=== PATIENT | male | born 1965 | race Caucasian/White ===

== ENCOUNTER 2021-04-25 09:44 | Outpatient (CLI) | payer OTHER, SELFPAY ==
--- NOTE | ~2021-04-25 | US_ITS ---
EXAMINATION: US abdomen limited EXAM DATE: 04/25/2021 10:17 INDICATION: R17 - Unspecified jaundice. TECHNIQUE: Multiple grayscale and Doppler images of the abdomen right upper quadrant were obtained (b y a technologist who performed the scan) and subsequently reviewed. There is no prior study for melissa prado. FINDINGS: The pancreatic head and body are normal in appearance. The pancreatic tail is not visualized. The l iver has normal echogenicity and contour. There are no focal liver lesions identified. There is no evidence of intrahepatic biliary duct dilation. Portal venous flow was seen in the hepatopedal, nor mal direction and has normal Doppler waveform. No right-sided hydronephrosis. Common bile duct measures 4 mm, which is normal. The gallbladder wall is normal in thickness, with ex pected amount of distention. No sonographic evidence of pericholecystic fluid. There is no cholelit hiases. Technologist performing exam reports patient did not demonstrate sonographic Hernandez's sign. Please note that this sign is less reliable in patients who have received pain medication. IMPRESSION: Unremarkable abdominal ultrasound exam. Reviewed, dictated and finalized at location A.
== END 2021-04-25 09:45 | disposition home or self-care (01) ==
LOC: ANHIMG 09:51
PROVIDERS: PCP Internal Medicine; Visit Provider Nurse Practitioner
DX: R17 Unspecified jaundice (principal)
CPT/HCPCS: 76705

== ENCOUNTER 2023-01-25 02:44 | Day surgery (SDC) | payer OTHER, SELFPAY ==
[2023-01-14 13:26] VITALS: BMI 25.9
--- NOTE | 2023-01-24 11:34 | PM.HPGS ---
History of Present Illness History of Present Illness Consent: Risks, benefits, and alternatives have been discussed and questions answered. Patient agrees to proceed with procedure. Chief complaint: family hx colon ca, hx colon polyps Narrative: Gregorio nKowles is a 57 year old male Referred for colon cancer screening. He has a family history of colon cancer and has had polyps removed himself. His last colonoscopy was 4 years ago. His grandmother and his grandmother sister both had colon cancer in their 40s. Review of Systems Review of Systems: All systems reviewed & are unremarkable except as noted in HPI and below PMFSH Past Medical History Medical History Body mass index (bmi) 25.0-25.9, adult Insomnia Tendonitis of elbow, left Surgical History Surgical History History of hernia repair History of tonsillectomy Family History Family History Father Allergies Father Hypertension Mother Hypertension Father Hypertension Family history of allergic disorder Mother Hypertension Social History Social History Smoking status: Never smoker Second hand tobacco smoke exposure: Yes Alcohol intake: current Drinks per week: 2 Alcohol use details: occasional Substance use: never Substance use type: does not use Lack of Transportation: No Lack of Food: Never True Current Housing: I Have Housing Concerned About Future Housing: No Difficulty Paying Gas/Electric Bills: No Difficulty Paying for Meds: No Currently Unemployed: No Education: Bachelor's Degree Difficulty w/ Childcare or Family Care: No Living arrangements: with family Spiritual care concerns: No Meds Home Medications and Allergies Home Medications Medication Instructions Recorded Confirmed Type alprazolam 1 mg tablet 1 mg PO DAILY PRN sleep #30 tabs 11/07/22 01/14/23 Rx sodium,potassium,mag sulfates 17.5 See Rx Instructions PO .COMPLEX 01/01/23 Rx gram-3.13 gram-1.6 gram oral soln #354 mL (Suprep Bowel Prep Kit) Adult Low Dose Aspirin 81 mg PO DAILY 01/25/23 01/25/23 History Allergies Allergy/AdvReac Type Severity Reaction Status Date / Time atorvastatin AdvReac Intermediate myalgias Verified 01/25/23 08:57 Exam Const: General: alert Orientation/consciousness: patient oriented x3 Resp: Auscultation: clear to auscultation bilaterally Cardio: Rhythm: regular rhythm GI: GI Palp: Yes Soft to palpation and No Tenderness to palpation present (GI) Neuro: General: patient oriented x3 Assessment and Plan Assessment and plan (1) Family history of colon cancer: Code(s): Z80.0 - Family history of malignant neoplasm of digestive organs Status: Acute Assessment and Plan: Colonoscopy with possible biopsy or polypectomy or cautery or injection of substances.
[2023-01-25 08:58] VITALS: BP 132/98; PULSE 65; RESP 16; TEMP 36.1; O2SAT 100
[2023-01-25] MEDS: LACTATED RINGERS 1,000 ML 150 ML IV CONT (09:10)
--- NOTE | 2023-01-25 09:46 | P.PNAN_ITS ---
Anes - Initial Pre Proc Eval Procedure: Operation Date: 01/25/23 10:00 Proposed Procedures p Colonoscopy - Iker Bateman MD Date/Time: 01/25/23 09:46 Surgeon: Iker Bateman MD Pre Op Diagnosis: family hx colon ca, hx colon polyps Patient Data Age: 57 Gender: M Height: 1.78 m Weight: 82 kg Last Vital Signs Temp 97 F L 01/25/23 08:58 Pulse 65 01/25/23 08:58 Resp 16 01/25/23 08:58 BP 132/98 H 01/25/23 08:58 Pulse Ox 100 01/25/23 08:58 O2 Del Method Room Air 01/25/23 08:58 Allergies Allergy/AdvReac Type Severity Reaction Status Date / Time atorvastatin AdvReac Intermediate myalgias Verified 01/25/23 08:57 Home Medications Medication Instructions Recorded Confirmed Type alprazolam 1 mg tablet 1 mg PO DAILY PRN sleep #30 tabs 11/07/22 01/14/23 Rx sodium,potassium,mag sulfates 17.5 See Rx Instructions PO .COMPLEX 01/01/23 Rx gram-3.13 gram-1.6 gram oral soln #354 mL (Suprep Bowel Prep Kit) Adult Low Dose Aspirin 81 mg PO DAILY 01/25/23 01/25/23 History Patient hx anesthesia problems: none Family hx anesthesia problems: none Results Review: All pre-operative results and documents have been reviewed as part of the pre- operative evaluation. [facility] Past Medical History Medical History Body mass index (bmi) 25.0-25.9, adult Insomnia Tendonitis of elbow, left Surgical History Surgical History History of hernia repair History of tonsillectomy Family History Family History Father Allergies Father Hypertension Mother Hypertension Father Hypertension Family history of allergic disorder Mother Hypertension Social History Social History Smoking status: Never smoker Second hand tobacco smoke exposure: Yes Alcohol intake: current Drinks per week: 2 Alcohol use details: occasional Substance use: never Substance use type: does not use Lack of Transportation: No Lack of Food: Never True Current Housing: I Have Housing Concerned About Future Housing: No Difficulty Paying Gas/Electric Bills: No Difficulty Paying for Meds: No Currently Unemployed: No Education: Bachelor's Degree Difficulty w/ Childcare or Family Care: No Living arrangements: with family Spiritual care concerns: No Anes - Eval Final PreProcedure Day of Procedure 01/25/23 09:46 Patient weight: normal Heart: regular rate and rhythm Lungs: clear to auscultation Airway: Mallampati scale class II Neurological: alert and oriented Last oral intake: >/= 8 hours ASA classification: II Emergent: no Anesthetic plan: proceed Anesthesia type and monitoring: general GIVS and standard monitoring Results Review: All pre-operative results and documents have been reviewed as part of the pre- operative evaluation. Informed Consent: The patient's anesthetic plan and its attendant risks and benefits were discussed with the patient/family/POA. Questions were solicited and answers provided to the satisfaction of the patient/family/POA.
[2023-01-25] MEDS: SIMETHICONE ORAL SUSPENSION 20 MG/0.3 ML 30 ML BOTTLE 0.6 ML IRRIGATION (10:05)
[2023-01-25 10:14] VITALS: BP 111/62; PULSE 68; RESP 18; O2SAT 100
[2023-01-25 10:24] VITALS: BP 110/67; PULSE 68; RESP 18; O2SAT 100
[2023-01-25 10:34] VITALS: BP 120/80; PULSE 66; RESP 19; O2SAT 100
== END 2023-01-25 10:47 | disposition home or self-care (01) ==
PROVIDERS: PCP Family Medicine; Visit Provider Internal Medicine Gastroenterology
PROC: 0DJD8ZZ Inspection of Lower Intestinal Tract, Via Natural or Artificial Opening Endoscopic (ICD-10-PCS; CPT 45378; principal; 2023-01-25 10:00)
DX: Z12.11 Encounter for screening for malignant neoplasm of colon (principal); K62.1 Rectal polyp; Z80.0 Family history of malignant neoplasm of digestive organs
CPT/HCPCS: 45380; 88305; J2704; J7120

== ENCOUNTER 2025-01-21 09:38 | Outpatient (CLI) | payer OTHER, SELFPAY ==
--- NOTE | 2025-01-21 09:44 | EST_ITS ---
Patient Info Name: Gregorio Knowles Age: 59 years : 1965 Gender: Male Ht: 71 in Wt: 200 lbs BSA: 2.15 m2 Exam Date: 01/21/2025 9:44 AM Patient Status: O Admit Date: 01/21/2025 Exam Type: CA stress test treadmill An exercise stress test was performed. Staff Attending Provider: Preet Alston Exercise Technologist: Kathleen Berry Exercise Physician: Wilman Dc DO Summary 1. 1. Negative Chai exercise stress test for ischemic ST changes by ECG criteria. 2. 2. Good functional capacity, achieving 10 METs of workload. 3. 3. Baseline hypertension with hypertensive response to exercise. 4. 4. Appropriate HR response to exercise. 5. 5. Appropriate HR recovery at 1 minute post exercise. 6. 6. No imaging with stress testing. 7. 7. Patient informed of the above results. Protocol: Chai Stress ECG Details Stage: REST Duration (min): 1 min : 35 sec Speed (mph): 0.0 Grade (%): 0 HR (bpm): 75 SBP (mmHg): 151 DBP (mmHg): 96 METS: --- Stage: REST Duration (min): 11 min : 18 sec Speed (mph): 0.0 Grade (%): 0 HR (bpm): 79 SBP (mmHg): 151 DBP (mmHg): 96 METS: --- Stage: STAGE 1 Duration (min): 1 min : 0 sec Speed (mph): 1.7 Grade (%): 10 HR (bpm): 101 SBP (mmHg): 151 DBP (mmHg): 96 METS: --- Stage: STAGE 1 Duration (min): 2 min : 0 sec Speed (mph): 1.7 Grade (%): 10 HR (bpm): 106 SBP (mmHg): 151 DBP (mmHg): 96 METS: --- Stage: STAGE 1 Duration (min): 3 min : 0 sec Speed (mph): 1.7 Grade (%): 10 HR (bpm): 112 SBP (mmHg): 177 DBP (mmHg): 88 METS: --- Stage: STAGE 2 Duration (min): 1 min : 0 sec Speed (mph): 2.5 Grade (%): 12 HR (bpm): 118 SBP (mmHg): 177 DBP (mmHg): 88 METS: --- Stage: STAGE 2 Duration (min): 2 min : 0 sec Speed (mph): 2.5 Grade (%): 12 HR (bpm): 123 SBP (mmHg): 189 DBP (mmHg): 89 METS: --- Stage: STAGE 2 Duration (min): 3 min : 0 sec Speed (mph): 2.5 Grade (%): 12 HR (bpm): 125 SBP (mmHg): 189 DBP (mmHg): 89 METS: --- Stage: STAGE 3 Duration (min): 1 min : 0 sec Speed (mph): 3.4 Grade (%): 14 HR (bpm): 139 SBP (mmHg): 198 DBP (mmHg): 93 METS: --- Stage: STAGE 3 Duration (min): 2 min : 0 sec Speed (mph): 3.4 Grade (%): 14 HR (bpm): 158 SBP (mmHg): 198 DBP (mmHg): 93 METS: --- Stage: STAGE 3 Duration (min): 2 min : 33 sec Speed (mph): 3.4 Grade (%): 14 HR (bpm): 163 SBP (mmHg): 198 DBP (mmHg): 93 METS: --- Stage: RECOVERY Duration (min): 0 min : 26 sec Speed (mph): 0.0 Grade (%): 0 HR (bpm): 159 SBP (mmHg): 213 DBP (mmHg): 63 METS: --- Stage: RECOVERY Duration (min): 1 min : 26 sec Speed (mph): 0.0 Grade (%): 0 HR (bpm): 123 SBP (mmHg): 213 DBP (mmHg): 63 METS: --- Stage: RECOVERY Duration (min): 2 min : 26 sec Speed (mph): 0.0 Grade (%): 0 HR (bpm): 111 SBP (mmHg): 246 DBP (mmHg): 92 METS: --- Stage: RECOVERY Duration (min): 3 min : 26 sec Speed (mph): 0.0 Grade (%): 0 HR (bpm): 97 SBP (mmHg): 223 DBP (mmHg): 90 METS: --- Stage: RECOVERY Duration (min): 4 min : 26 sec Speed (mph): 0.0 Grade (%): 0 HR (bpm): 97 SBP (mmHg): 223 DBP (mmHg): 90 METS: --- Stage: RECOVERY Duration (min): 5 min : 26 sec Speed (mph): 0.0 Grade (%): 0 HR (bpm): 93 SBP (mmHg): 172 DBP (mmHg): 85 METS: --- Stage: RECOVERY Duration (min): 6 min : 26 sec Speed (mph): 0.0 Grade (%): 0 HR (bpm): 96 SBP (mmHg): 172 DBP (mmHg): 85 METS: --- Stage: RECOVERY Duration (min): 6 min : 52 sec Speed (mph): 0.0 Grade (%): 0 HR (bpm): 96 SBP (mmHg): 156 DBP (mmHg): 86 METS: --- Rest HR: 79 bpm Peak HR: 166 bpm Rest Sys BP: 151 mmHg Peak Sys BP: 246 mmHg Max Pred HR: 163 bpm % Max Pred HR: 102 % Target HR: 139 bpm Max RPP: 40,836 bpm*mmHg Valdez Score: 2 BP Response: Patient exhibited a hypertensive response with stress Termination Reason: Reached target heart rate or workload Cardiac Symptoms: Shortness of breath Max ST Seg Deviation: -1.40 mm Total Time: 8 min : 33 sec Rest Real BP: 96 mmHg Peak Real BP: 92 mmHg Angina Score: None Total METS: 10.3 Resting ECG Sinus rhythm. Stress ECG No ST changes. Arrhythmias None. Report Signatures
--- OUTSIDE RECORDS SUMMARY | 2025-01-21 09:47 | XMS_ITS | Encounter Summary ---
Author Organization [facility] Address [address] [facility] [place] [address] Care Team Providers Care Train Controller Name Role Phone Jose Fleming Primary Care Provider [phone] Encounter Details Date Type Department Care Team (Late st Contact Info) Description 02/11/2020 Lab Requisition [facility] Lab [address] [facility], [place] [phone] Ellie Hooker DO [address] [facility] 3 [place] [address] Social History Tobacco Use Types Packs/Day Years Used Date Smoking Tobacco: Never Smokeless Tobacco: Never Sex and Gender Information Value Date Recorded Sex Assigned at Not on file 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 DermPath Lab Received: 02/11/2020 08:21 AM Pathologist: Akil Gustafson MD Specimen: Skin, right lateral LE 0 5:05 PM CDT DERMATOPATHOLOGY LABORATORY Final Diagnosis Specimen A. SKIN, right lateral LE: SUPERFICIAL PERIVASCULAR LYMPHOCYTIC INFILTRATE (L98.9) DERMAL HEMORRHAGE (I99.8) (see microscopic description) 0 5:05 PM T DERMATOPATHOLOGY LABORATORY at 1705 CDT Clinical History R/O hem vs ecchymoses vs NMSC; pink papule. 0 5:05 PM CDT DERMATOPATHOLOGY LABORATORY Gross Description Specimen A: Received is one formalin filled container labeled with the patient's name and designated right lateral LE. The specimen consists of a shave measuring [id number]. Jar 0. 0 5:05 PM T DERMATOPATHOLOGY LABORATORY Microscopic Description Specimen A. SKIN, right lateral LE: In the dermis, there is a perivascular, mainly lymphohistiocytic inflammatory infiltrate. Sections also show dermal hemorrhage with scattered hemosiderophages. There is no evidence of epithelial dysplasia or malignancy in multiple deeper sections examined. 0 5:05 PM T DERMATOPATHOLOGY LABORATORY Disclaimer An external and internal positive and negative controls are appropriate for the histochemical, immunohistochemical and immunofluorescence stain(s) in this case (if any), except where stated explicitly. The performance characteristics of the stain(s) cited in this report were developed and its performance characteristic determined by the Dermatopathology Laboratory at [facility], directed by Dr. Vee Gustafson. These tests need not be, and therefore are not, approved by the [place] Food and Drug Administration. The tests are used for clinical purposes. Billing Codes Specimen Charges Stain Charges 40704 1 0 5:05 PM CDT DERMATOPATHOLOGY LABORATORY Embedded Images 0 5:05 PM CDT DERMATOPATHOLOGY LABORATORY Pathology/Cytolog y TISSUE SPECIMEN FROM SKIN / Unknown 02/10/2020 02/11/2020 8:21 AM CDT us Ellie Hooker DO LAB - PATHOLOGY/CYTOLOGY ORDERABLES Final Result DERMATOPATHOLOGY LABORATORY [facility] - Department of Dermatology Brush Machine Setter [place]/[address] [phone] documented in this encounter Visit Diagnoses Not on filedocumented in this encounter Additional Health Concerns Infection Onset Date Last Indicated Resolved Time COVID-19 Under Investigation 03/13/2021 03/13/2021 03/13/2021 11:13 AM CDT COVID-19 Under Investigation 03/13/2021 03/13/2021 03/15/2021 12:12 PM CDT COVID-19 Confirmed 03/13/2021 03/13/2021 4:33 AM CDT documented as of this encounter Care Teams Train Controller Relationship Specialty Start Date End Date Jose Fleming DO [address] [place] [phone] PCP - General Internal Medicine 09/20/18 documented as of this encounter
--- OUTSIDE RECORDS SUMMARY | 2025-01-21 09:47 | XMS_ITS | Clinical Summary ---
Author Organization [facility] Address [address] [place] [address] Care Team Providers Care Link Trainer Operator Name Role Phone Jose Fleming Primary Care Provider [phone] Source Comments [facility],non-owned Affiliates and Associated Physician Practices is amultiple site organization consisting of ambulatory clinics and hospital sitesin [place], [place], [place] and [place]. This disclosure is being madepursuant to the Care Everywhere program and may not contain all information available regarding this patient. Last updated 18.[facility] Allergies No known active allergies Medications * Be aware that medications may not be up to date on this document. Alwaysverify current medications with the patient. albuterol HFA (PROVENTIL;MATHEW NANY;PROAIR) 108 (90 Base) MCG/ACT inhalerIndicatio ns:Acute bronchitis, unspecified organism Inhale 2 (two) puffs by mouth every 6 hours as needed for Wheezing or Cough 1 g 1 Active fluticasone propionate (FLONASE) 50 MCG/ACT nasal sprayIndications :Acute bronchitis, unspecified organism Temperance 2 (two) sprays into each nostril once daily 1 Each 1 Active Active Problems No known active problems Encounters Date Type Department Care Team Description 11/16/2024 Lab Requisition [facility] - DermPath Lab [address] [facility] [address] Tami Giraldo MD from Last 3 Months Immunizations Immunization Administration Dates Next Due TDAP (7yrs+) 03/25/2020 Social History Tobacco Use Types Packs/Day Years Used Date Smoking Tobacco: Never Smokeless Tobacco: Never Sex and Gender Information Value Date Recorded Sex Assigned at Not on file 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 Gender Identity Not on file Sexual Orientation Not on file Last Filed Vital Signs Vital Sign Reading Time Taken Comments Blood Pressure 128/80 03/13/2021 10:55 AM CDT Pulse 94 03/13/2021 10:55 AM CDT Temperature 37.1 C (98.8 F) 03/13/2021 10:55 AM CDT Respiratory Rate 16 03/13/2021 10:55 AM CDT Oxygen Saturation 98% 03/13/2021 10:55 AM CDT Inhaled Oxygen Concentration - - Weight 86.2 kg (190 lb) 03/13/2021 10:55 AM CDT Height 177.8 cm (5' 10) 03/13/2021 10:55 AM CDT Body Mass Index 27.26 03/13/2021 10:55 AM CDT Plan of Treatment Health Maintenance Due Date Last Done Comments COLOGUARD (AGES 45-75) - COL ON CA SCREENING 1965 COLON MONITORING 1965 COLONOSCOPY - COLON CA SCREENING 1965 CT COLONOGRAPHY - COLON CA SCREENING 1965 Colorectal Cancer Screening 1965 FIT - COLON CA SCREENING 1965 FLEX SIG - COLON CA SCREENING 1965 LIPID TESTING 1965 HIV SCREENING 10/27/1982 HEPATITIS C SCREENING 10/23/1985 HEPATITIS B VACCINE (1 of 3 - 19+ 3-dose series) 10/27/1986 PNEUMOCOCCAL VACCINE 50+ (1 of 1 - PCV) 10/27/2017 ZOSTER VACCINE (1 of 2) 10/27/2017 SCREENING FOR DIABETES 03/13/2021 COVID-19 VACCINE (3 - 2023-2 5 season) 2024 09/18/2020, 08/28/2020 DEPRESSION SCREENING 07/15/2024 INFLUENZA VACCINE (Season Ended) 2025 DTAP/TDAP/TD VACCINES (2 - T d or Tdap) 03/25/2030 03/25/2020 HIB VACCINE Aged Out No longer eligi ble based on patient's age to complete this topic HPV VACCINE Aged Out No longer eligi ble based on patient's age to complete this topic MENINGOCOCCAL (Group B) VACCINE SHARED DECISION-MAKING Aged Out No longer eligible based on patient's age to complete this topic MENINGOCOCCAL GROUPS A/C/Y/W VACCINE Aged Out No longer eligible b ased on patient's age to complete this topic Procedures Procedure Name Priority Date/Time Associated Diagnosis Comments DERMATOPATHOLOGY Routine 11/16/2024 8:13 AM CDT from Last 3 Months Results * DERMATOPATHOLOGY (11/16/2024 8:13 AM CDT) Case Report Dermatopathology Report Case: [id number] Authorizing Provider: Tami Giraldo MD Collected: 11/16/2024 08:13 AM Ordering Location: [facility] - Received: 11/16/2024 04:16 PM DermPath Lab Pathologist: Pepper Phan MD Specimen: Skin, back 12:40 PM CDT DERMATOPATHOLOGY LABORATORY Final Diagnosis Specimen A. SKIN, back: NEUROFIBROMA (D36.10) 12:40 PM CDT DERMATOPATHOLOGY LABORATORY at 1240 CDT Clinical History Itchy pink papule, nevus R/O BCC 12:40 PM CDT DERMATOPATHOLOGY LABORATORY Gross Description Specimen A: Received is one formalin filled container labeled with the patient's name and designated back. The specimen consists of a shave biopsy measuring 6x6x1 mm. Jar 0. 12:40 PM CDT DERMATOPATHOLOGY LABORATORY Microscopic Description Specimen A. SKIN, back: Sections show a proliferation of spindled and S-shaped cells within the dermis. The stromal collagen is delicate and pale. 12:40 PM CDT DERMATOPATHOLOGY LABORATORY Disclaimer An external and internal positive and negative controls are appropriate for the histochemical, immunohistochemical and immunofluorescence stain(s) in this case (if any), except where stated explicitly. The performance characteristics of the stain(s) cited in this report were developed and its performance characteristic determined by the Dermatopathology Laboratory at [facility], directed by Dr. Vee Gustafson. These tests need not be, and therefore are not, approved by the [place] Food and Drug Administration. The tests are used for clinical purposes. Billing Codes Specimen Charges Stain Charges 72306 1 5 12:40 PM CDT DERMATOPATHOLOGY LABORATORY Embedded Images 5 12:40 PM CDT DERMATOPATHOLOGY LABORATORY Pathology/Cytolo gy TISSUE SPECIMEN FROM SKIN / Unknown 11/16/2024 8:13 AM CDT 11/16/2024 4:16 PM CDT Tami Giraldo MD LAB - PATHOLOGY/CYTOLOGY ORD ERABLES Final Result DERMATOPATHOLOGY LABORATORY [facility] - Department of Dermatology [address] [place] [address], [facility] [phone] from Last 3 Months Insurance [facility] AET AET[employer] Care Teams Link Trainer Operator Relationship Specialty Start Date End Date Jose Fleming DO [address] [place] [phone] PCP - General Internal Medicine 09/20/18
--- OUTSIDE RECORDS SUMMARY | 2025-01-21 09:47 | XMS_ITS | Encounter Summary ---
Author Organization [facility] Address [address] [place] [address] Care Team Providers Care Safe Deposit Attendant Name Role Phone Jose Fleming Primary Care Provider [phone] Encounter Details Date Type Department Care Team (Late st Contact Info) Description 11/16/[address] 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 - Received: 11/16/2024 04:16 PM DermPath Lab [...] characteristic determined by the Dermatopathology Laboratory at [facility], directed by Dr. Vee Gustafson. These tests need not be, and therefore are not, approved by the [place] Food and Drug Administration. The tests are used for clinical purposes. Billing Codes Specimen Charges Stain Charges 60725 1 12:40 PM CDT DERMATOPATHOLOGY LABORATORY Embedded Images 12:40 PM CDT DERMATOPATHOLOGY LABORATORY Pathology/Cytolo gy TISSUE SPECIMEN FROM SKIN / Unknown 11/16/2024 8:13 AM CDT 11/16/2024 4:16 PM CDT us Tami Giraldo MD LAB - PATHOLOGY/CYTOLOGY ORD ERABLES Final Result DERMATOPATHOLOGY LABORATORY [facility] - Department of Dermatology [address] [phone] documented in this encounter Visit Diagnoses Not on filedocumented in this encounter Care Teams Safe Deposit Attendant Relationship Specialty Start Date End Date Jose Fleming DO [address] [place] [address] PCP - General Internal Medicine 09/20/18 documented as of this encounter
== END 2025-01-21 09:39 | disposition home or self-care (01) ==
PROVIDERS: PCP Nurse Practitioner; Visit Provider Nurse Practitioner
DX: R07.9 Chest pain, unspecified (principal); Z82.49 Family history of ischemic heart disease and other diseases of the circulatory system
CPT/HCPCS: 93017

== ENCOUNTER 2025-04-13 09:42 | Outpatient (CLI) | payer OTHER, SELFPAY ==
--- NOTE | ~2025-04-13 | US_ITS ---
EXAMINATION: US carotid duplex BI DATE: 04/13/2025 10:11 INDICATION: Family history of ischemic heart disease. TECHNIQUE: Grayscale, color Doppler, and pulsed Doppler images of the cervical carotid arteries were obtained. The degree of vessel stenosis is placed in one of the following categories: normal, <50%, 50-69%, >=70% but less than near- occlusion, near-occlusion, or total occlusion. Note that percent stenosis relative to normal distal artery lumen diameter is indirectly measured from velocity measurements as described by Jaspreet, et al. Radiology 2003; 229:340-346. COMPARISON: None. FINDINGS: RIGHT: The right common carotid artery (CCA) peak systolic velocity (PSV) is 106 cm/s. The right internal carotid artery (ICA) PSV is 23 cm/s. The right ICA end- diastolic velocity (EDV) is 31 cm/s. The right ICA/CCA PSV ratio is 0.6. Grayscale and color Doppler images yield an estimate of <50% diameter reduction from plaque in the ICA. There is antegrade flow in the right vertebral artery. LEFT: The left CCA PSV is 99 cm/s. The left ICA PSV is 20 cm/s. The left ICA EDV is 67 cm/s. The left ICA/CCA PSV ratio is 0.7. Grayscale and color Doppler images yield an estimate of <50% diameter reduction from plaque in the ICA. There is antegrade flow in the left vertebral artery. IMPRESSION: 1. <50% stenosis in the right internal carotid artery. 2. <50% stenosis in the left internal carotid artery. Reviewed, dictated and finalized at location E.
== END 2025-04-13 09:43 | disposition home or self-care (01) ==
LOC: MICIMG 09:43
PROVIDERS: PCP Nurse Practitioner; Visit Provider Nurse Practitioner
DX: I65.23 Occlusion and stenosis of bilateral carotid arteries (principal); Z82.49 Family history of ischemic heart disease and other diseases of the circulatory system
CPT/HCPCS: 93880